=== PATIENT | male | born 1940 | race Caucasian/White ===

== ENCOUNTER 2017-11-05 08:26 | Day surgery (SDC) | payer MEDICARE, OTHER ==
[2017-10-30 11:07] LABS: BASOPHILS % (AUTO) 0.4 % (0-1); EOSINOPHILS # (AUTO) 0.2 X10'3 (0-0.9); EOSINOPHILS % (AUTO) 2.3 % (0-6); HEMATOCRIT 46.5 % (42.0-52.0); HEMOGLOBIN 15.4 g/dl (14.0-17.9); LYMPHOCYTES # (AUTO) 1.4 X10'3 (1.1-4.8); LYMPHOCYTES % (AUTO) 19.6 % (21-51); MEAN CORPUSCULAR HEMOGLOBIN 28.4 PG (27.0-31.0); MEAN CORPUSCULAR HGB CONC 33.1 % (33.0-36.5); MEAN CORPUSCULAR VOLUME 85.9 FL (78-98); MEAN PLATELET VOLUME 7.8 FL (7.4-10.4); MONOCYTES # (AUTO) 0.4 X10'3 (0-0.9); MONOCYTES % (AUTO) 5.7 % (2-12); PLATELET COUNT 154 X10'3 (140-440); RED BLOOD COUNT 5.41 X10'6 (4.70-6.10); RED CELL DISTRIBUTION WIDTH 13.7 % (11.5-14.5); WHITE BLOOD COUNT 6.9 X10'3 (4.5-11.0)
[2017-10-30 11:18] LABS: PARTIAL THROMBOPLASTIN TIME 28 SECONDS (22-32); PROTHROMBIN TIME 10.2 SECONDS (9.0-12.0)
[2017-10-30 11:27] LABS: ALANINE AMINOTRANSFERASE 22 U/L (12-78); ALBUMIN 3.6 G/DL (3.4-5.0); ALBUMIN/GLOBULIN RATIO 0.9 (1.1-1.5); ALKALINE PHOSPHATASE 70 IU/L (46-116); ANION GAP 7 (8-16); ASPARTATE AMINO TRANSFERASE 18 U/L (10-37); BILIRUBIN,TOTAL 0.5 MG/DL (0.1-1.0); BLOOD UREA NITROGEN 13 MG/DL (7-18); BUN/CREATININE RATIO 11.2 (5.4-32.0); CALCIUM 9.6 MG/DL (8.5-10.1); CHLORIDE 104 MMOL/L (99-107); CREATININE 1.16 MG/DL (0.60-1.10); GLUCOSE 91 MG/DL (70-104); POTASSIUM 3.8 MMOL/L (3.5-5.1); SODIUM 142 MMOL/L (135-145); TOTAL CARBON DIOXIDE 30.8 MMOL/L (24-32); TOTAL PROTEIN 7.4 G/DL (6.4-8.2); eGFR 61 ML/MIN
[~2017-11-05] VITALS: Ht 175.3 cm; Wt 72.5 kg
[2017-11-05] VITALS (13 sets, daily range): BP systolic 111–139; BP diastolic 62–79
[~2017-11-05 08:26] MED LIST: ALB0.5UD IH; CLON-528 PO; DICY10CA88 PO; FAMO-1 PO; FLO44IN IH; GABA-338 PO; NABU-102 PO; PANT40TA39 PO; PARO10TA4 CORPAK; SIMV20TA5 PO; ZAFI10TA2 PO; [UNRECOGNIZED DRUG - CODE] SL
[2017-11-05] MEDS ORDERED: normal saline 1000ml 1,000 ML IV SCH (08:55)
[2017-11-05] MEDS ORDERED: nitroGLYCERIN 0.4mg SUBLingual tab SL PRN (08:55)
[2017-11-05] MEDS ORDERED: LORazepam 0.5 MG tablet PO PRN (08:55)
[2017-11-05] MEDS ORDERED: diphenhydrAMINE 25mg capsule PO PRN (08:55)
[2017-11-05] MEDS ORDERED: GLUC100017 PO (09:17)
[2017-11-05] MEDS ORDERED: CICL6.1H4 INH (09:17)
[2017-11-05] MEDS ORDERED: LACT1CAP65 PO (09:17)
[2017-11-05] MEDS ORDERED: MONT10TA24 PO (09:17)
[2017-11-05] MEDS ORDERED: OMEG-169 PO (09:17)
[2017-11-05] MEDS ORDERED: CHOL100046 PO (09:17)
[2017-11-05] MEDS ORDERED: MULT-38 PO (09:17)
[2017-11-05] MEDS ORDERED: ASPI-1265 PO (09:17)
[2017-11-05] MEDS ORDERED: [UNRECOGNIZED DRUG - CODE] PEG (09:17)
[2017-11-05] MEDS ORDERED: CALC600T12 PO (09:17)
[2017-11-05] MEDS ORDERED: FERR134T2 PO (09:17)
[2017-11-05] MEDS ORDERED: BECL7.3A7 INH (09:17)
[2017-11-05] MEDS ORDERED: LORA-641 PO (09:17)
[2017-11-05] MEDS ORDERED: midazolam 2 mg/2 ml injection ONE (10:47)
[2017-11-05] MEDS ORDERED: fentaNYL/PF 50MCG/1 ML 2ML syringe ONE (10:47)
[2017-11-05] MEDS ORDERED: iohexol 350MG/ML 100ml bottle IV ONE (10:47)
[2017-11-05] MEDS ORDERED: iohexol 350 MG/ML 50ML vial IV ONE (10:47)
[2017-11-05] MEDS ORDERED: LIDOcaine 1% 30ml preserv. free vial ONE (10:48)
[2017-11-05] MEDS ORDERED: diphenhydrAMINE 50 mg/ml inj ONE (11:06)
[2017-11-05] MEDS ORDERED: proCHLORperazine 10 MG/2 ml inj ONE (11:11)
[2017-11-05] MEDS ORDERED: OXAZEpam 15mg capsule PO PRN (12:20)
[2017-11-05] MEDS ORDERED: ondansetron/PF 4mg/2ml inj IV PRN (12:20)
[2017-11-05] MEDS ORDERED: proCHLORperazine 10 MG/2 ml inj IV PRN (12:20)
[2017-11-05] MEDS ORDERED: gabapentin 300mg capsule PO SCH ×2 (15:35→16:26)
[2017-11-05] MEDS ORDERED: gabapentin 300mg capsule PO ONE (16:25)
== END 2017-11-05 18:05 | disposition home or self-care (01) ==
LOC: SSTAY O 08:26
PROVIDERS: ATTEND Internal Medicine Cardiovascular Disease
DX: I25.10 Atherosclerotic heart disease of native coronary artery without angina pectoris (principal); K21.9 Gastro-esophageal reflux disease without esophagitis; F41.8 Other specified anxiety disorders; I44.0 Atrioventricular block, first degree; Z90.79 Acquired absence of other genital organ(s); Z87.442 Personal history of urinary calculi; Z85.118 Personal history of other malignant neoplasm of bronchus and lung; Z98.41 Cataract extraction status, right eye; Z98.42 Cataract extraction status, left eye; Z98.52 Vasectomy status; Z85.46 Personal history of malignant neoplasm of prostate; Z85.820 Personal history of malignant melanoma of skin; Z90.2 Acquired absence of lung [part of]; Z79.891 Long term (current) use of opiate analgesic; Z87.891 Personal history of nicotine dependence; Z79.82 Long term (current) use of aspirin; Z79.1 Long term (current) use of non-steroidal anti-inflammatories (NSAID); Z79.899 Other long term (current) drug therapy; Z98.890 Other specified postprocedural states; Z83.3 Family history of diabetes mellitus
CPT/HCPCS: 36415; 71046; 80053; 85025; 85610; 85730; 93005; 93458; 99152; 99153; A6257; C1760; C1769; J0780; J1200; J1644; J2250; J3010; J3490; J7030; Q9967; A4620; Q0163

== ENCOUNTER 2018-09-22 08:03 | Outpatient (CLI) | payer MEDICARE, OTHER ==
[~2018-09-22 08:03] MED LIST changes: +ASPI-1265 PO; +BECL7.3A7 INH; +CALC600T12 PO; +CHOL100046 PO; +CICL6.1H4 INH; +FERR134T2 PO; +GLUC100017 PO; +LACT1CAP65 PO; +LORA-641 PO; +MONT10TA24 PO; +MULT-38 PO; +OMEG-169 PO; -PARO10TA4 CORPAK; -ZAFI10TA2 PO; +[UNRECOGNIZED DRUG - CODE] PEG
[2018-09-22 09:19] LABS: BASOPHILS % (AUTO) 0.5 % (0-1); EOSINOPHILS # (AUTO) 0.1 X10'3 (0-0.9); EOSINOPHILS % (AUTO) 1.2 % (0-6); HEMATOCRIT 46.1 % (42.0-52.0); HEMOGLOBIN 15.3 g/dl (14.0-17.9); LYMPHOCYTES # (AUTO) 1.2 X10'3 (1.1-4.8); LYMPHOCYTES % (AUTO) 19.4 % (21-51); MEAN CORPUSCULAR HEMOGLOBIN 28.8 PG (27.0-31.0); MEAN CORPUSCULAR HGB CONC 33.1 g/dL (33.0-36.5); MEAN CORPUSCULAR VOLUME 86.8 FL (78-98); MEAN PLATELET VOLUME 7.5 FL (7.4-10.4); MONOCYTES # (AUTO) 0.5 X10'3 (0-0.9); MONOCYTES % (AUTO) 7.7 % (2-12); NEUTROPHILS # (AUTO) 4.5 X10'3 (1.8-7.7); NEUTROPHILS % (AUTO) 71.2 % (42-75); PLATELET COUNT 188 X10'3 (140-440); RED BLOOD COUNT 5.31 X10'6 (4.70-6.10); RED CELL DISTRIBUTION WIDTH 14.1 % (11.5-14.5); WHITE BLOOD COUNT 6.3 X10'3 (4.5-11.0)
[2018-09-22 09:37] LABS: PARTIAL THROMBOPLASTIN TIME 29 SECONDS (22-32)
[2018-09-22 09:39] LABS: ALANINE AMINOTRANSFERASE 26 U/L (12-78); ALBUMIN 3.6 G/DL (3.4-5.0); ALBUMIN/GLOBULIN RATIO 0.9 (1.1-1.5); ALKALINE PHOSPHATASE 70 IU/L (46-116); ANION GAP 6 (8-16); ASPARTATE AMINO TRANSFERASE 16 U/L (10-37); BILIRUBIN,TOTAL 0.6 MG/DL (0.1-1.0); BLOOD UREA NITROGEN 16 MG/DL (7-18); BUN/CREATININE RATIO 13.7 (5.4-32.0); CALCIUM 9.8 MG/DL (8.5-10.1); CHLORIDE 106 MMOL/L (99-107); CREATININE 1.17 MG/DL (0.60-1.10); GLUCOSE 94 MG/DL (70-104); POTASSIUM 4.1 MMOL/L (3.5-5.1); SODIUM 144 MMOL/L (135-145); TOTAL CARBON DIOXIDE 31.7 MMOL/L (24-32); TOTAL PROTEIN 7.5 G/DL (6.4-8.2); eGFR 60 ML/MIN
== END 2018-09-22 23:59 | disposition home or self-care (01) ==
LOC: LAB 08:03
DX: D69.1 Qualitative platelet defects (principal); J45.909 Unspecified asthma, uncomplicated; Z87.891 Personal history of nicotine dependence
CPT/HCPCS: 36415; 80053; 85025; 85576; 85610; 85730